=== PATIENT | male | born 1970 | race Hispanic/Latino ===

== ENCOUNTER 2021-04-22 09:21 | Emergency (ER) | payer BC, SELFPAY ==
--- NOTE | ~2021-04-22 | XR_ITS ---
EXAMINATION: XR wrist LT min 3V DATE: 04/22/2021 10:39 INDICATION: Left wrist pain. TECHNIQUE: 4 views of left wrist were obtained. COMPARISON: None. FINDINGS: Bone alignment is normal. No fracture. There is mild osteoarthritis of triscaphe joint and first and third metacarpophalangeal joints. IMPRESSION: 1. Mild polyarticular osteoarthritis. Reviewed, dictated and finalized at location B.
--- NOTE | ~2021-04-22 | XR_ITS ---
EXAMINATION: XR wrist RT min 3V DATE: 04/22/2021 10:38 INDICATION: Right wrist pain. TECHNIQUE: 4 views of right wrist were obtained. COMPARISON: None. FINDINGS: Bone alignment is normal. No fracture. There is a 5 mm nonaggressive lytic lesion in capita te, likely an enchondroma. There is mild osteoarthritis of triscaphe joint, first carpometacarpal jayda nt, and first and third metacarpophalangeal joints. IMPRESSION: 1. Mild polyarticular osteoarthritis. Reviewed, dictated and finalized at location B.
[2021-04-22 09:41] VITALS: BP 148/92; PULSE 92; RESP 18; TEMP 36.8; O2SAT 99
--- NOTE | 2021-04-22 10:27 | ED.EXTPRO ---
HPI - Extremity Problem General Chief complaint: Extremity Problem,Nontraumatic Stated complaint: Bilateral Arm Pain x2 1/2 years Time Seen by Provider: 04/22/21 10:03 Source: patient Mode of arrival: ambulatory Limitations: no limitations History of Present Illness HPI Narrative: This is a 50-year-old male that presents to the emergency department for bilateral wrist pain present over the last couple years. Worsening over the last couple of months. The pain is sharp and constant. It radiates up into his arms. He has not taking anything for pain. Reports he was diagnosed with carpal tunnel years ago, but has not had any follow-up for this. Reports he feels tingling in his fingers which has also been ongoing for months. Denies any recent injuries. Denies weakness, decreased range of motion or numbness. Related Data Home Medications Medication Instructions Recorded Confirmed No Home Medications 04/22/21 04/22/21 Allergies Allergy/AdvReac Type Severity Reaction Status Date / Time No Known Allergies Allergy Verified 04/22/21 09:43 Review of Systems Review of Systems: CONSTITUTIONAL: Denies fever SKIN: Denies rash MUSCULOSKELETAL: Reports joint pain, and myalgia. NEUROLOGIC: Denies numbness, or weakness. All systems reviewed & are unremarkable except as noted in HPI and below PMFSH Past Medical History Medical History (Updated 04/22/21 @ 12:10 by Hawa Oconnor PA-C) No active medical problems Social History Social History (Updated 04/22/21 @ 10:29 by Hawa Oocnnor PA-C) Smoking status: Current every day smoker Exam Narrative: GENERAL: Well-appearing, well-nourished, and in no acute distress. HEAD: Normocephalic, atraumatic. EYES: EOMI. EXTREMITIES: Normal range of motion. Pain with active range of motion in the wrists. No edema, erythema or obvious deformity. Finish Grinder strength is equal (5/5). Normal radial pulses. Positive Phalen test SKIN: Warm, dry, no rash. NEURO: No focal deficits. Alert and oriented x3. PSYCH: Normal mood and affect Course Vital Signs Vital signs: Vital Signs Temperature 98.2 F 04/22/21 09:41 Pulse Rate 92 04/22/21 09:41 Respiratory Rate 18 04/22/21 09:41 Blood Pressure 148/92 H 04/22/21 09:41 Pulse Oximetry 99 04/22/21 09:41 Temperature 98.2 F 04/22/21 09:41 Pulse Rate 92 04/22/21 09:41 Respiratory Rate 18 04/22/21 09:41 Blood Pressure 148/92 H 04/22/21 09:41 Pulse Oximetry 99 04/22/21 09:41 MDM - Extremity (Nontraumatic) MDM Narrative Medical decision making narrative: Patient presents to the emergency department for ongoing bilateral wrist discomfort and paresthesias over the last couple years. Worsening recently. Patient's history does seem consistent with likely carpal tunnel syndrome. Positive Phalen test. Bilateral wrist x-ray shows mild osteoarthritis. Patient was updated on case findings. Instructed to follow-up with hand surgery for this. He was given warnings to return to the ER Imaging Data Radiologist's impression: ITS Impressions Wrist X-Ray 04/22/21 10:39 IMPRESSION: 1. Mild polyarticular osteoarthritis. Wrist X-Ray 04/22/21 10:41 IMPRESSION: 1. Mild polyarticular osteoarthritis. Critical Care Time Critical Care Time Critical Care Time: No Discharge Plan Discharge Clinical Impression: Bilateral carpal tunnel syndrome Patient Disposition: Home, Self-Care Condition: Stable Instructions: Carpal Tunnel Surgery (DC) Additional Instructions: Return to the emergency department if you experience fever, redness and swelling of your arm, numbness, your arm feels cold, chest pain, shortness of breath, or any other symptoms that are concerning to you Rest. Ice to the area. Tylenol or ibuprofen as needed for discomfort. You can buy carpal tunnel wrist splints to wear at night from the pharmacy Follow-up with hand surgery. Call to make an appointment Prescriptions
[2021-04-22] MEDS: KETOROLAC (*BKC) 60 MG/2 ML VIAL IM (10:41)
[2021-04-22] MEDS: ACETAMINOPHEN 500 MG TABLET 1000 MG PO (10:41)
[2021-04-22 12:58] VITALS: BP 115/81
== END 2021-04-22 12:59 | disposition home or self-care (01) ==
PROVIDERS: Emergency Provider Emergency Medicine
DX: G56.03 Carpal tunnel syndrome, bilateral upper limbs (principal); M19.90 Unspecified osteoarthritis, unspecified site
CPT/HCPCS: 73110; 96372; 99284; A9270; J1885

== ENCOUNTER → 2021-07-21 02:45 | Outpatient (CLI) | payer BC, SELFPAY ==
[2021-07-21 18:23] LABS: SARS-CoV-2 RNA PCR Negative
== END ==
PROVIDERS: Visit Provider Plastic Surgery
DX: Z01.812 Encounter for preprocedural laboratory examination (principal); Z20.822 Contact with and (suspected) exposure to COVID-19
CPT/HCPCS: C9803; U0003; U0005

== ENCOUNTER 2021-07-24 01:08 | Day surgery (SDC) | payer BC, SELFPAY ==
[2021-07-23 09:46] VITALS: BMI 23.3
--- NOTE | 2021-07-23 09:54 | PC.NURSE ---
Report to the Outpatient Waiting Room, entrance under the green pavilion located off [facility], at time 1030 on date 07/24/21. OR Time: 1230. - You and your visitor will be asked a series of questions to screen for COVID 19 for your protection. - A mask is required within the hospital. - Only one visitor is allowed at this time. Patient visitors will be guided where to wait when not with patient. Preoperative COVID Testing Requirements: No COVID Test needed if: (proof is required; if not received patient will have Rapid Test prior to entry) - Patient has received COVID Vaccine at least 14 days prior to procedure date or - Patient has positive COVID test result within last 90 days of surgery date. COVID Test needed if above criteria is not met If not COVID vaccinated a COVID test must be conducted within 72 hours of surgery and patient is asked to isolate self from time of testing until procedure. You will go to the [facility] for your COVID testing. The [facility] site is located at the corner of [address] [facility]. You will only be called if COVID results are positive and your surgeon may reschedule your elective surgery date. Patients may have clear liquids (water, carbonated beverages, clear teas, apple juice) until 3 hours prior to surgery with a maximum of 20 ounces. - No food from midnight until time of surgery - Infants may have breast milk until 4 hours before surgery, infant formula 6 hours prior to surgery. - Children will be allowed to drink immediately following surgery. If applicable, please bring a bottle or sippy cup to assist with drinking. Juice, water, soda, and popsicles are readily available. For infants on formula, please bring formula the day of surgery. Pacifiers are allowed. Take the following medications with a SIP of water the morning of surgery: N/A Medications to discontinue per physician: N/A Date to take last dose: N/A Please no make-up, nail turkmen, hairspray, perfume, deodorant, or body powder the day of surgery. No jewelry (including any body piercings) or valuables the day of surgery, leave them at home. Please take a shower or bath the night before, or the morning of, surgery with an antibacterial soap. Wear comfortable, loose fitting clothing. Children are encouraged to wear pajamas. - Jewelry must be removed prior to entering the operating room. Rings and piercings that are not removed may be cut off. - The hospital will not accept responsibility for valuables. - Please leave all valuables, including medications, at home the day of surgery. If you are going home after surgery, a licensed hazardous materials driver must drive you home. - NO public transportation without another adult. - We recommend that an adult stay with you for 24 hours following discharge. - We also recommend that you do not drive, make important decision, drink alcoholic beverages, or take any drugs that were not prescribed by your health care provider for at least 24 hours after your discharge time. For Pediatric surgeries, we recommend two adults accompany the child home (only one inside the building at this time). Follow any additional instructions given to you from your surgeon. Telephone instructions given to FELICE DOTSON and asked if any additional questions and then verbalized understanding. Patient advised to call surgeon office or pre surgery nurse liaison [phone] if any additional questions.
--- NOTE | 2021-07-24 08:04 | WPDHPUPDATE1 ---
History and Physical Update Update Date/Time: 07/24/21 08:04 History and Physical has been reviewed, including an updated exam of the patient. There are NO changes in the patient's condition. Risks, benefits, and alternatives have been discussed and questions answered. Patient agrees to proceed with procedure.
[2021-07-24 10:36] VITALS: BP 136/83; PULSE 71; RESP 16; TEMP 36.6; O2SAT 100
[2021-07-24] MEDS: LACTATED RINGERS 1,000 ML 30 ML IV CONT (11:01)
--- NOTE | 2021-07-24 12:26 | P.PNAN_ITS ---
Anes - Initial Pre Proc Eval Procedure: Operation Date: 07/24/21 12:30 Proposed Procedures p Bilateral Open Carpal Tunnel Release - Jun Arora MD Date/Time: 07/24/21 12:26 Surgeon: Jun Arora MD Pre Op Diagnosis: Hair Carpal Tunnel Syndrome Patient Data Age: 50 Gender: M Height: 1.65 m Weight: 61.8 kg Last Vital Signs Temp 97.9 F 07/24/21 10:36 Pulse 71 07/24/21 10:36 Resp 16 07/24/21 10:36 BP 136/83 07/24/21 10:36 Pulse Ox 100 07/24/21 10:36 Allergies Allergy/AdvReac Type Severity Reaction Status Date / Time No Known Allergies Allergy Verified 07/24/21 10:53 Home Medications Medication Instructions Recorded Confirmed Type No Home Medications 04/22/21 07/23/21 History Patient hx anesthesia problems: none Family hx anesthesia problems: none Results Review: All pre-operative results and documents have been reviewed as part of the pre-operative evaluation. [facility] Past Medical History Medical History (Updated 04/23/21 @ 00:00 by Makenna Sevilla) No active medical problems Social History Social History (Updated 04/22/21 @ 10:29 by Hawa Oconnor PA-C) Smoking packs per day: 0.5 Smoking cigarettes per day: 10.0 Years smoked: 15 Smoking pack-years: 7.50 Smoking status: Former smoker Tobacco type: cigarettes Smoking end date: 06/22/21 Alcohol intake: never Substance use: current Substance use type: marijuana Last use: 07/21/21 Living arrangements: with family Spiritual care concerns: No Anes - Eval Final PreProcedure Day of Procedure 07/24/21 12:26 Patient weight: normal Heart: regular rate and rhythm Lungs: clear to auscultation Airway: Mallampati scale class II Neurological: alert and oriented Last oral intake: >/= 8 hours ASA classification: II Emergent: no Anesthetic plan: proceed Anesthesia type and monitoring: general GIVS and standard monitoring Results Review: All pre-operative results and documents have been reviewed as part of the pre-operative evaluation. Informed Consent: The patient's anesthetic plan and its attendant risks and benefits were discussed with the patient/family/POA. Questions were solicited and answers provided to the satisfaction of the patient/family/POA.
[2021-07-24 13:28] VITALS: BP 112/77; PULSE 67; RESP 14; O2SAT 99
[2021-07-24 13:58] VITALS: BP 112/73; PULSE 66; RESP 14; O2SAT 99
--- NOTE | 2021-07-24 14:05 | W.PM.PROC2 ---
Procedure Note - Detailed Date of Procedure 07/24/21 Pre-op Diagnosis Hair Carpal Tunnel Syndrome Post-op Diagnosis same Procedure Performed Bilateral open carpal tunnel release Surgeon Jun Arora MD Anesthesia MAC Description of Procedure The 2 carpal tunnel sites were marked on patient in the holding area. He was taken to operating placed supine operating table. A time-out was held and confirmed. Was given IV sedation. Both upper extremities were prepped and draped on separate hand tables. The 2 sites were remarked and locally infiltrated with 1% lidocaine with epinephrine. The right hand was done 1st with an incision in the palm as marked. Dissection was carried through the subcutaneous tissue to the palmar fascia. This was incised and regenerative very large palmaris brevis in the distal half burn wound. This was carefully dissected and divided with scissors. A large vascular structures nasal side as well. This was retracted out of the way until the carpal retinaculum could be divided. Proximally the Ragnell retractor was inserted under the subcutaneous tissue and the retinaculum divided in the direction the wound was closed with interrupted 4-0 nylon suture. Usual bandage was applied the tourniquet was released. We moved to the left side the tourniquet was inflated it was on the forearm. Incision was made as marked and dissection was carried through the subcutaneous tissue to the palmar fascia. This and the carpal ligament were incised a 15. Blade. There was almost no ulnar nerves brevis in this region and the ligament was divided easily with adequate retraction. The skin was then closed with interrupted 4-0 nylon suture and the usual bandage applied. The patient is discharge instructions in wound care and follow-up he has a prescription for hydrocodone 5/325 number 10. Estimated Blood Loss -5.0 Tourniquet Time 11 Drains No Packing No Pathology none sent Complications No immediate complications Condition stable Disposition same day
[2021-07-24 14:28] VITALS: BP 122/79; PULSE 68; RESP 14; O2SAT 100
== END 2021-07-24 14:37 | disposition home or self-care (01) ==
PROVIDERS: Visit Provider Plastic Surgery
PROC: (CPT 64721; principal; 2021-07-24 12:30)
DX: G56.03 Carpal tunnel syndrome, bilateral upper limbs (principal); Z87.891 Personal history of nicotine dependence; F12.90 Cannabis use, unspecified, uncomplicated
CPT/HCPCS: 64721; A9270; J1100; J2250; J2405; J2704; J3010; J7120